=== PATIENT | male | born 1960 | race Two or more races ===

== ENCOUNTER 2025-06-07 09:49 | Emergency (ER) | payer OTHER ==
[~2025-06-07] VITALS: Ht 170.2 cm; Wt 86.2 kg
[2025-06-07] MEDS ORDERED: CEFTRIAXONE SODIUM 1,000 MG VIAL IM ONE (11:15)
[2025-06-07] MEDS ORDERED: CETIRIZINE HCL 5 MG/5 ML ML PO ONE (11:15)
[2025-06-07] MEDS ORDERED: METHYLPREDNISOLONE SOD SUCC 40 MG VIAL IM ONE (11:15)
[2025-06-07] MEDS ORDERED: BENZONATATE 200 MG CAPSULE PO ONE (11:15)
[2025-06-07] MEDS ORDERED: CETIRIZINE HCL 5MG/5ML BLIST.PACK PO ONE (11:41)
[2025-06-07] MEDS ORDERED: METHYLPREDNISOLONE SOD SUCC 40 MG VIAL ONE (11:41)
[2025-06-07] MEDS ORDERED: CEFTRIAXONE SODIUM 1,000 MG VIAL ONE (11:41)
[2025-06-07 12:13] LABS: BASO % 0.8 % (0.1-1.2); EOS # 0.12 (0.04-0.54); EOS % 2.3 % (0.7-7.0); LYMPH # 0.90 (1.18-3.74); LYMPH % 17.1 % (19.3-53.1); MEAN PLATELET VOLUME 9.80 fl (9.4-12.4); MONO # 0.58 (0.24-0.82); MONO % 11.0 % (4.7-12.5); NEUT # 3.60 (1.56-6.13); NEUT % 68.4 % (34.0-71.1); RED CELL DISTRIBUTION WIDTH 12.9 % (11.6-14.4)
[2025-06-07 12:27] LABS: COVID-19 AG NEGATIVE (NEGATIVE)
[2025-06-07] MEDS ORDERED: BENZONATATE200 M1 PO (12:56)
[2025-06-07] MEDS ORDERED: ZYRTEC10 MG PO (12:56)
[2025-06-07] MEDS ORDERED: SINGULAIR10 MG PO (12:56)
[2025-06-07] MEDS ORDERED: PEPCID AC20 MG PO (12:56)
== END 2025-06-07 13:33 | disposition home or self-care (01) ==
LOC: ER 09:49
PROVIDERS: General Practice
DX: R05.9 Cough, unspecified (principal); J00 Acute nasopharyngitis [common cold]; I10 Essential (primary) hypertension; Z20.822 Contact with and (suspected) exposure to COVID-19
CPT/HCPCS: 36415; 71046; 96372; 99283; J0696; J3490